=== PATIENT | female | born 1945 | race Caucasian/White ===

== ENCOUNTER 2024-02-04 13:14 | Inpatient (IN) | payer MEDICARE, OTHER, SELFPAY ==
[2024-02-04] VITALS (7 sets, daily range): BP systolic 128–147; BP diastolic 53–64; PULSE 59–92; RESP 16–26; TEMP 36.4–37; O2SAT 83–99; BMI 23.7
--- NOTE | ~2024-02-04 | CT_ITS ---
EXAMINATION: CT HEAD WITHOUT CONTRAST CLINICAL INFORMATION: Dizziness and headache. COMPARISON: None. TECHNIQUE: Contiguous axial imaging was performed from the skullbase to vertex without intravenous administration of contrast. This CT examination was performed using dose optimization techniques as appropriate, variously including the following: *Automated exposure control *Adjustment of mA and/or kV according to patient size (this includes techniques or standardized protocols for targeted exams where dose is matched to indication/reason for exam; i.e. extremities or head) *Use of iterative reconstruction technique DLP: 929 mGy-cm. FINDINGS: There is no evidence of acute intracranial hemorrhage or territorial infarction. No abnormal mass effect or midline shift is seen. Lynne to white matter differentiation is well preserved. No extra-axial fluid collections are identified. Mild chronic white matter microangiopathy changes noted. Generalized brain parenchymal volume loss evident with mild ex vacuo prominence of the ventricles. The osseous structures and soft tissues are normal. The mastoid air cells and visualized portions of the paranasal sinuses are well aerated. CT/CT head/brain wo IV con IMPRESSION: No acute intracranial hemorrhage or territorial infarction. Electronically signed by: Harshil Egan MD 02/04/2024 04:46 PM EDT
--- NOTE | ~2024-02-04 | CT_ITS ---
EXAMINATION: CT ANGIOGRAM CHEST CLINICAL INFORMATION: Syncope, hypoxia COMPARISON: None available. TECHNIQUE: Multiple axial images were obtained through the chest after the administration of 65 mL of Omnipaque 350 intravenous contrast. Extensive vascular post-processing including two-dimensional and three-dimensional reformatted images were created and reviewed on an independent workstation. This CT examination was performed using dose optimization techniques as appropriate, variously including the following: *Automated exposure control *Adjustment of mA and/or kV according to patient size (this includes techniques or standardized protocols for targeted exams where dose is matched to indication/reason for exam; i.e. extremities or head) *Use of iterative reconstruction technique DLP: 929 mGy-cm FINDINGS: QUALITY OF STUDY/CONTRAST BOLUS: Slightly suboptimal opacification. PULMONARY ARTERIES: No evidence of focal filling defect in the main, lobar, or proximal segmental vessels to suggest pulmonary embolism. THORACIC AORTA: No aneurysm. LUNG: Trachea and proximal airway are patent. Multifocal airspace and groundglass opacities in the lingula, right middle lobe, bilateral lower lobes. This could reflect infectious/inflammatory process. PLEURA: No pleural effusion or pneumothorax. MEDIASTINUM: Heart size is borderline prominent No pericardial effusion. No hilar or mediastinal lymphadenopathy. No evidence of septal bowing or right heart strain. CORONARY ARTERY CALCIFICATION: None visualized on this study. CHEST WALL/AXILLA: No axillary or internal mammary lymphadenopathy. OSSEOUS STRUCTURES: No acute or suspicious osseous abnormality. Multilevel degeneration in the thoracic spine. UPPER ABDOMEN: 1.3 cm hypodense lesion in the right hepatic lobe, likely cyst.. Right renal 3.5 cm cyst. No reflux of contrast into the hepatic veins to suggest elevated right heart pressures. CT/CT angio chest PE protocol IMPRESSION: 1. Slightly suboptimal opacification of pulmonary arteries. No evidence of filling defects to suggest pulmonary embolism.. 2. Multifocal airspace and groundglass opacities in bilateral lower lobes, lingula and right middle lobe. This could reflect infectious or inflammatory process. Recommend follow-up imaging to ensure resolution. 3. Additional findings and details above. VTE: negative Fleischner guidelines were followed. Electronically signed by: Giovanni Prasad MD 02/04/2024 05:43 PM EDT
--- NOTE | ~2024-02-04 | XR_ITS ---
EXAMINATION: XR CHEST CLINICAL INFORMATION: Hypoxia COMPARISON: None available. TECHNIQUE: Frontal view of the chest was obtained. FINDINGS: Heart size within normal limits. Curvilinear calcification is identified overlying the right heart border. Pulmonary vascularity within normal limits. Nonspecific vague bilateral increased markings and mild left midlung atelectasis. No consolidation/air bronchograms or effusions. Degenerative changes. XR/XR chest 1V IMPRESSION: Indeterminate vague increased interstitial markings and curvilinear calcification overlying the right heart border. Consider CT scan for more complete evaluation. Electronically signed by: Loree Casillas MD 02/04/2024 02:37 PM EDT
--- NOTE | 2024-02-04 13:24 | ECG_ITS ---
Test Reason : syncope Blood Pressure : / mmHG Vent. Rate : 063 BPM Atrial Rate : 063 BPM P-R Int : 156 ms QRS Dur : 122 ms QT Int : 472 ms P-R-T Axes : 056 -16 106 degrees QTc Int : 483 ms Poor data quality, interpretation may be adversely affected Sinus rhythm with Premature atrial complexes with Aberrant conduction Left bundle branch block Abnormal ECG No previous ECGs available Referred By: Calli Hernandez Electronically Signed By:KYLEE MAHMOOD
[2024-02-04 14:12] LABS: MANUAL DIFF FLAG NO
[2024-02-04 14:13] LABS: Basophils Absolute Auto 0.1 X10*3/uL (0.0-0.2); Basophils Percent Auto 0.7 % (0-2); Eosinophils Percent Auto 0.1 % (0-4); Hematocrit 37.8 % (37.0-47.0); Hemoglobin 12.7 g/dl (12.0-16.0); Imm Gran Abs Auto 0.03 X10*3/uL (0.00-0.03); Imm Gran Pct Auto 0.4 % (0.0-0.4); Lymphocytes Absolute Auto 0.7 X10*3/uL (1.2-4.9); Lymphocytes Percent Auto 9.7 % (20-40); Mean Corpuscular HGB Conc 33.6 g/dl (31.0-35.0); Mean Corpuscular Hemoglobin 32.6 pg (27.0-33.0); Mean Corpuscular Volume 96.9 fL (80.0-98.0); Mean Platelet Volume 10.1 fL (9.4-12.3); Monocytes Absolute Auto 0.3 X10*3/uL (0.1-1.2); Monocytes Percent Auto 4.1 % (2-11); Neutrophils Absolute Auto 6.4 x10*3/uL (2.0-8.3); Platelet Count 223 X10*3/uL (160-400); Red Cell Distribution Width 13.8 % (11.0-16.0); White Blood Count 7.5 X10*3/uL (4.8-10.8)
--- NOTE | 2024-02-04 14:23 | ED_ITS ---
HPI - Dizziness General Chief Complaint: Syncope Stated Complaint: VOMITING,SYNCOPE PER EMS Time Seen by Provider: 02/04/24 14:12 Source: patient and RN notes reviewed Mode of arrival: ambulatory Limitations: no limitations History of Present Illness ED Provider: Helen Ivory PA-C HPI Narrative: This is a 78-year-old female, with a history of thyroid disease, hyperlipidemia, LBBB, and vertigo, who presents emergency department accompanied by her sisters with acute onset dizziness. Patient states that this morning she leaned over, and suddenly felt a wave of dizziness. She states that the dizziness is waxing and waning however continues to be persistent. She states that she felt her symptoms improve and decided to get ready for the day and was in the car when suddenly she felt nauseous and vomited several times. Sister reports that there was a time where her breathing became very labored. Sister reports that she did not fully lose consciousness but seem to be out of it . Patient reports that before today she was feeling well. Patient reports that she currently has a headache, is nauseous and is dizzy. She states that she has a history of vertigo however states that this vertigo is different than the previous vertigo she has had in the past as usually her vertigo resolved after several seconds. She is not on blood thinners. No head strike. She has no history of lung disorders in the past. No recent travel, surgeries, hospitalizations. No history of blood clots. No other complaints or concerns at this time. MD elicited complaint: lightheadedness Timing: sudden onset Description: room spinning and near-syncope Context: change in body position History of similar symptoms: Yes Exacerbating factors: change in body position Relieving factors: nothing Associated symptoms: nausea, vomiting and diaphoresis Related Data Allergies Allergy/AdvReac Type Severity Reaction Status Date / Time azithromycin Allergy Unknown Verified 02/04/24 13:29 Sulfa (Sulfonamide Allergy Unknown Verified 02/04/24 13:29 Antibiotics) Review of Systems 2 Review of Systems: Yes all other systems are reviewed and are negative Constitutional: Constitutional: Reports as per HPI [facility] Social History Social History Smoked in Last 30 Days: No Use of substances other than those prescribed or required for medical reasons: No Advance Directives: No Advance Directives Information Provided: Yes Physical Exam 2 Vital Signs: Vital Signs: Last Vital Signs Temp 97.6 F 02/04/24 16:52 Pulse 86 02/04/24 17:36 Resp 16 02/04/24 16:52 BP 147/64 H 02/04/24 17:36 Pulse Ox 98 02/04/24 16:52 O2 Del Method Nasal Cannula 02/04/24 16:52 O2 Flow Rate 3 02/04/24 16:52 BMI result Body Mass Index 23.7 Const: General: cooperative, comfortable and no acute distress O rientation/consciousness: patient oriented x3 Limitations: no limitations HEENT: Head: Yes normal to inspection, Yes normocephalic and Yes atraumatic Ears: hearing grossly normal bilaterally General nose exam: Normal external nose present Face and sinus: Yes normal facial exam Mouth: Normal oral and palatal mucosa present, oropharynx normal and moist mucous membranes Throat: Yes posterior oropharynx normal Eyes: General: appearance normal, both eyes and all related structures E yelids: Yes eyelids normal Conjunctivae: conjunctivae normal Sclerae: s clerae normal Pupils: Equal, round and reactive pupils present EOM: EOMs intact bilaterally Neck: Neck: Yes normal visual inspection, Yes full ROM and Yes no lymphadenopathy Lymphatic: no lymphadenopathy noted Chest: Chest palpation & inspection: normal inspection of the chest Resp: Effort & Inspection: normal respiratory effort and able to speak in complete sentences Auscultation: clear to auscultation bilaterally, no crackles, no rales, no rhonchi and no wheezes Cardio: Rate: regular rate Rhythm: regular rhythm Heart sounds: S1 normal heart sound present and S2 normal heart sound present GI: Inspection: Yes normal to inspection Skin: General skin exam: no rashes or lesions noted Trauma: no lacerations or abrasions Wounds: no wounds Neuro: General: patient oriented x3 and moves all extremities Cranial nerves: Yes CN's II-XII intact bilaterally and Yes Equal, round and reactive pupils present Cognition (Neuro): normal cognition Gait exam (Neuro): N ormal gait present and not ataxic Motor exam (neuro): 5/5 motor strength present throughout, Pronator motor function not present and no tremor noted C oordination: gycyhr-ht-vbnt test normal and badr-[id number] test normal Romberg Test: Negative Extrem: General: Yes normal to inspection Right upper extremity: normal to inspection Left upper extremity: normal to inspection Right lower extremity: normal to inspection Left lower extremity: normal to inspection NIH Stroke Scale Level of Consciousness: Alert Level of Consciousness Questions: Answers both questions correctly Level of Consciousness Commands: Performs both tasks correctly Best Gaze: Normal Visual: No visual loss Facial Palsy: Normal Motor Arm (Right): No drift Motor Arm (Left): No drift Motor Leg (Right): No drift Motor Leg (Left): No drift Limb Ataxia: Absent Sensory: Normal Best Language: No aphasia Dysarthia: Normal Extinction and Inattention: No abnormality Score: 0 Course Reevaluation(s) Reevaluation #1: Patient with indeterminate vague increased interstitial markings in curvilinear calcification overlying the right heart border, consider CT for more complete evaluation. Given findings, as well as near-syncope and hypoxia, CTA was ordered to rule out PE. CT head still pending. Time: 15:00 Reevaluation #2: CT head returns, no abnormality seen. I also discussed case with my attending physician, Dr. Phan, who does not advise on antibiotics at this time. Pending 2nd troponin, CTA chest. Regardless, patient needs to be admitted for hypoxia. Workup still pending at this time, sign-out given to my colleague, Karson Crow PA-C pending re-evaluation +/- admission. Time: 16:55 Reevaluation #3: Patient received in sign-out at change of shift pending CT scan of the chest. This shows no evidence of pulmonary thromboembolism but does show multifocal pneumonia. Clinically, the patient likely aspirated earlier as she got dizzy and vomiting. This is also back to by the fact that is mostly right-sided pneumonia. We will treat with Zosyn which should cover aspiration pneumonia. The patient also has an anaphylactic allergy to azithromycin was facial and tongue swelling per her report. Will discuss with the hospitalist for admission due to aspiration pneumonia and hypoxia Time: 18:08 Medications Administered Discontinued Medications Generic Name Dose Route Start Last Admin Trade Name Freq PRN Reason Stop Dose Admin Acetaminophen 975 mg 02/04/24 17:29 02/04/24 17:40 Acetaminophen 325 Mg Tablet PO 02/04/24 17:30 975 mg ONCE ONE Administration Iohexol 65 ml 02/04/24 16:43 02/04/24 16:43 Iohexol 350 Mg/Ml 100 Ml Infus..Btl IV 02/04/24 16:44 65 ml ONCE ONE Administration Ondansetron HCl 4 mg 02/04/24 14:28 02/04/24 15:41 Ondansetron Hcl 4 Mg/2 Ml Vial IVPUSH 02/04/24 14:29 4 mg ONCE ONE Administration Medical Decision Making Medical Decision Making [facility] Narrative: This is a 78-year-old female who presents emergency department with acute onset dizziness, vomiting, and hypoxia. On arrival, patient's oxygen saturation 83%, she was placed on 4 L. now saturating at 95%. She had an episode of vomiting with shortness for breath, concerning for aspiration. She has an NIH score of 0, she has no neurologic deficits however given vertigo, vomiting, posterior/cerebellar stroke is considered, I had patient evaluated by my attending physician, Dr. Sarkar given situation, given patient has no ataxia, less suspicious for CVA. Recommending dry CT, and chest x-ray. Not advising for prophylactic antibiotics at this time. We will continue to closely monitor. Plan: Labs, EKG, chest x-ray Differential Diagnosis Differential Diagnoses: The differential diagnosis associated with the presentation includes Aspiration pneumonia, PE, electrolyte derangement, ACS, ICH Admission/Observation Consideration of admission/observation: Escalation of care including admission/observation considered Lab Data [facility] Lab Attestation statement: I reviewed the patient's lab results. 02/04/24 14:07 02/04/24 14:07 Labs: Lab Results 02/04/24 02/04/24 02/04/24 Range/Units 14:07 14:48 17:08 WBC 7.5 (4.8-10.8) X10*3/uL RBC 3.90 L (4.20-5.50) X10*6/uL Hgb 12.7 (12.0-16.0) g/dl Hct 37.8 (37.0-47.0) % MCV 96.9 (80.0-98.0) fL MCH 32.6 (27.0-33.0) pg MCHC 33.6 (31.0-35.0) g/dl RDW 13.8 (11.0-16.0) % Plt Count 223 (160-400) X10*3/uL MPV 10.1 (9.4-12.3) fL Immature Gran % (Auto) 0.4 (0.0-0.4) % Neut % (Auto) 85.0 H (45-73) % Lymph % (Auto) 9.7 L (20-40) % [place] % (Auto) 4.1 (2-11) % Eos % (Auto) 0.1 (0-4) % Baso % (Auto) 0.7 (0-2) % Lymph # (Auto) 0.7 L (1.2-4.9) X10*3/uL [place] # (Auto) 0.3 (0.1-1.2) X10*3/uL Eos # (Auto) 0.0 (0.0-0.4) X10*3/uL Baso # (Auto) 0.1 (0.0-0.2) X10*3/uL Abs Immat Gran (auto) 0.03 (0.00-0.03) X10*3/uL Absolute Neuts (auto) 6.4 (2.0-8.3) x10*3/uL Absolute Nucleated RBC 0.000 (0.0-0.012) X10*3/uL Nucleated RBC % (auto) 0.0 (0.0-0.2) /100WBC VBG pH 7.35 (7.32-7.43) VBG pCO2 53 mmHg VBG pO2 41 mmHg VBG HCO3 29 H (22-26) mmol/L VBG O2 Saturation 66.0 % VBG Base Excess 3.1 mmol/L Sodium 141 (135-145) mmol/L Potassium 4.5 (3.3-5.1) mmol/L Chloride 110 H (96-108) mmol/L Carbon Dioxide 27 (22-29) mmol/L Anion Gap 9 L (12-20) BUN 15 (9-16) mg/dL Creatinine 0.76 (0.5-1.4) mg/dL Estim Creat Clear Calc 58.0 Estimated GFR > 60 Random Glucose 119 H (60-115) mg/dL Calcium 8.7 (8.4-10.2) mg/dL Magnesium 2.1 (1.6-2.6) mg/dL Total Bilirubin 0.3 (0.0-1.0) mg/dL Direct Bilirubin 0.1 (0.0-0.5) mg/dL AST 21 (5-31) U/L ALT 13 (0-31) U/L Alkaline Phosphatase 57 (39-117) U/L Troponin I High Sens < 2.7 < 2.7 (<3.5-17.0) ng/L Total Protein 6.4 L (6.5-8.0) g/dL Albumin 3.8 (3.5-5.0) g/dL Influenza Type A (PCR) NEGATIVE (Negative) Influenza Type B (PCR) NEGATIVE (Negative) RSV RNA Qual (PCR) NEGATIVE (Negative) SARS-CoV-2 RNA (RT-PCR) NEGATIVE (Negative) Independent Interpretation I performed an independent interpretation of an: EKG Interpretation: Sinus rhythm with PAC, NV interval 156, QT QTC 472/483. Left bundle-branch block noted. No previous EKGs for comparison. Patient reports that she has a history of a left bundle-branch block Radiology Impression Discussion of test interpretation with radiology: I have reviewed the radiologist's reading. Radiologist Impression: CT/CT head/brain wo IV con IMPRESSION: No acute intracranial hemorrhage or territorial infarction. Electronically signed by: Karishma eClis MD 02/04/2024 04:46 PM EDT RP Dictated By: KARISHMA CELIS MD XR/XR chest 1V IMPRESSION: Indeterminate vague increased interstitial markings and curvilinear calcification overlying the right heart border. Consider CT scan for more complete evaluation. Electronically signed by: Loree Casillas MD 02/04/2024 02:37 PM EDT RP Dictated By: Loree Casillas MD External Record Review External record reviewed: Inpatient record, Office record, Outpatient record, Prior outpatient labs, Prior outpatient radiology, Primary care record and Outside ED record Critical Care Time Critical Care Time Critical Care Time: Yes Total Critical Care Time: 35 Attestation: I have personally provided critical care time exclusive of time spent on separately billable procedures. Time includes review of lab data, radiology results, discussion with consultants, and monitoring for potential decompensation. Intervention performed as documented. Discharge Plan Discharge Clinical Impression: Hypoxia, Aspiration pneumonia Patient Disposition: Admitted As Inpatient Print Language: Grenadian
[2024-02-04 14:32] LABS: Alanine Aminotransferase 13 U/L (0-31); Albumin Level 3.8 g/dL (3.5-5.0); Alkaline Phosphatase 57 U/L (39-117); Anion Gap 9 (12-20); Aspartate Amino Transferase 21 U/L (5-31); Bilirubin Direct 0.1 mg/dL (0.0-0.5); Bilirubin Total 0.3 mg/dL (0.0-1.0); Blood Urea Nitrogen 15 mg/dL (9-16); Calcium 8.7 mg/dL (8.4-10.2); Carbon Dioxide 27 mmol/L (22-29); Chloride 110 mmol/L (96-108); Estimated Glomerular Filt Rate > 60; Glucose Random 119 mg/dL (60-115); Magnesium 2.1 mg/dL (1.6-2.6); Potassium 4.5 mmol/L (3.3-5.1); Sodium 141 mmol/L (135-145); Total Protein 6.4 g/dL (6.5-8.0)
[2024-02-04 14:36] LABS: Troponin-I High Sensitivity < 2.7 ng/L (<3.5-17.0)
[2024-02-04 14:53] LABS: VBG Base Excess 3.1 mmol/L; VBG HCO3 29 mmol/L (22-26); VBG pCO2 53 mmHg; VBG pH 7.35 (7.32-7.43); VBG pO2 41 mmHg
[2024-02-04 14:54] LABS: Venous Blood Gas Refer to POC result
[2024-02-04] MEDS: ondansetron HCL 4 MG/2 ML VIAL IVPUSH (15:41)
[2024-02-04] MEDS: iohexoL 350 MG/ML 100 ML INFUS..BTL 65 ML IV (16:43)
--- NOTE | 2024-02-04 17:39 | PC.NURSE ---
Pt. cannot tolerate orthos at this time d/t nausea. Provider aware.
[2024-02-04] MEDS: Acetaminophen 325 MG TABLET 975 MG PO (17:40)
[2024-02-04 17:42] LABS: Troponin-I High Sensitivity < 2.7 ng/L (<3.5-17.0)
[2024-02-04 17:56] LABS: Influenza A PCR NEGATIVE (Negative); Influenza B PCR NEGATIVE (Negative); Resp Syncy Virus RNA Qual PCR NEGATIVE (Negative); SARS COV2 PCR INHOUSE NEGATIVE (Negative)
--- NOTE | 2024-02-04 18:33 | P.HPHOSP_ITS ---
History of Present Illness Date of Service: 02/04/24 Attending physician on admission: Brigida Gurrola Chief Complaint: dizzy, vomiting 78-year-old female with history of vertigo, hypothyroidism, GERD, hyperlipidemia, mood disorder presented to the ED earlier today for evaluation of vomiting and dizziness. Her son is at bedside during examination. Pt reports history of intermittent vertigo dating back 10 years brought on by position changes with room spinning sensation nausea and vomiting. Vertigo is not intractable and patient is typically asymptomatic and able to ambulate. This morning she bent forward and developed vertigo with nausea, laid down with some improvement. When she got up the dizziness recurred but went to her friends house. While driving the vertigo worsened and she had significant vomiting. Since then has had intermittent cough and her friend brought her to the hospital for evaluation. On arrival, patient was hypoxic to 83% was placed on 2 L supplemental O2. Initially tachypneic to 26 with mildly elevated hr of 92, vitals otherwise stable. On exam, supplemental O2 removed and patient has been maintaining oximetry 96% on room air. There was no leukocytosis. Renal function and electrolyte levels within normal limits except for chloride 110. Glucose 119. Troponin undetectable. Negative for COVID, flu, RSV. CT head negative for any acute intracranial abnormality. CTA chest not suggestive of pulmonary embolism but there is multifocal airspace and ground-glass opacities in the bilateral lower lobes, lingula and right middle lobe likely reflective of infectious or inflammatory process. EKG shows sinus rhythm with PACs and aberrant conduction, rate 63 with what appears to be new left bundle branch block although there are no recent EKGs available from our facility or at [facility] which was reviewed. Denies any sob, wheezing, presyncope, chest pain. In the ED, was given Tylenol and ondansetron. Review of Systems 2 Review of Systems: Yes all other systems are reviewed and are negative [facility] Medical History GERD (gastroesophageal reflux disease) Hyperlipidemia Vertigo Hypothyroidism Social History Smoked in Last 30 Days: No Use of substances other than those prescribed or required for medical reasons: No Advance Directives: No Advance Directives Information Provided: Yes Meds Allergies Allergy/AdvReac Type Severity Reaction Status Date / Time azithromycin Allergy Unknown Verified 02/04/24 13:29 Sulfa (Sulfonamide Allergy Unknown Verified 02/04/24 13:29 Antibiotics) Active Medications: Current Medications Piperacillin Sod/Tazobactam (Sod 3.375 gm/ Sodium Chloride) 50 mls @ 100 mls/hr IV ONCE ONE Stop: 02/04/24 18:36 Sodium Chloride (Ns) 1,000 mls @ 999 mls/hr IV .Q1H1M ALBINA Stop: 02/04/24 19:15 Home Medications ?Medication ?Instructions ?Recorded ?Confirmed ?Last Taken ?Type ciclopirox 0.77 % topical cream 1 appl topical DAILY 02/04/24 Unknown History famotidine 40 mg tablet 40 mg PO BID 02/04/24 Unknown History fluticasone propionate 110 1 puff inhalation DAILY 02/04/24 02/04/24 Unknown History mcg/actuation HFA aerosol inhaler levothyroxine 88 mcg tablet 88 mcg PO DAILY 02/04/24 Unknown History lorazepam 1 mg tablet 1 mg PO DAILY PRN Anxiety 02/04/24 Unknown History simvastatin 20 mg tablet 20 mg PO BEDTIME 02/04/24 Unknown History venlafaxine 75 mg capsule,extended 75 mg PO DAILY 02/04/24 Unknown History release 24 hr Physical Exam 2 Vital Signs and Narrative: Vital Signs: Last Vital Signs Temp 97.6 F 02/04/24 16:52 Pulse 86 02/04/24 17:36 Resp 16 02/04/24 16:52 BP 147/64 H 02/04/24 17:36 Pulse Ox 98 02/04/24 16:52 O2 Del Method Nasal Cannula 02/04/24 16:52 O2 Flow Rate 3 02/04/24 16:52 BMI result Body Mass Index 23.7 Constitutional - Awake and Alert, No apparent distress Eyes - PERRLA, EOMI Cardiovascular - S1S2, RRR, No edema Respiratory - Normal lung expansion, Normal respiratory effort, No respiratory distress, rhonchi R middle and lower lobe Gastrointestinal - NT / ND; +BS; No rebound or guarding Extremities - no calf tenderness bilaterally, no swelling Skin - Warm/Dry Neurological - Alert & oriented x3, horizontal nystagmus otherwise CN II-XII in tact Psychological - Appropriate affect Results Labs 02/04/24 14:07 02/04/24 14:07 Labs: Laboratory Results - last 24 hr 02/04/24 02/04/24 02/04/24 14:07 14:48 17:08 MCV 96.9 MCH 32.6 MCHC 33.6 RDW 13.8 Plt Count 223 MPV 10.1 Immature Gran % (Auto) 0.4 Neut % (Auto) 85.0 H Lymph % (Auto) 9.7 L [place] % (Auto) 4.1 Eos % (Auto) 0.1 Baso % (Auto) 0.7 Lymph # (Auto) 0.7 L [place] # (Auto) 0.3 Eos # (Auto) 0.0 Baso # (Auto) 0.1 Abs Immat Gran (auto) 0.03 Absolute Neuts (auto) 6.4 Absolute Nucleated RBC 0.000 Nucleated RBC % (auto) 0.0 VBG pH 7.35 VBG pCO2 53 VBG pO2 41 VBG HCO3 29 H VBG O2 Saturation 66.0 VBG Base Excess 3.1 Anion Gap 9 L Estim Creat Clear Calc 58.0 Estimated GFR > 60 Random Glucose 119 H Calcium 8.7 Magnesium 2.1 Total Bilirubin 0.3 Direct Bilirubin 0.1 AST 21 ALT 13 Alkaline Phosphatase 57 Troponin I High Sens < 2.7 < 2.7 Total Protein 6.4 L Albumin 3.8 Influenza Type A (PCR) NEGATIVE Influenza Type B (PCR) NEGATIVE RSV RNA Qual (PCR) NEGATIVE SARS-CoV-2 RNA (RT-PCR) NEGATIVE Imaging Radiologist's Impressions: Impressions Chest X-Ray 02/04/24 13:38 IMPRESSION: Indeterminate vague increased interstitial markings and curvilinear calcification overlying the right heart border. Consider CT scan for more complete evaluation. Electronically signed by: Loree Casillas MD 02/04/2024 02:37 PM EDT Chest CTA 02/04/24 15:00 IMPRESSION: 1. Slightly suboptimal opacification of pulmonary arteries. No evidence of filling defects to suggest pulmonary embolism.. 2. Multifocal airspace and groundglass opacities in bilateral lower lobes, lingula and right middle lobe. This could reflect infectious or inflammatory process. Recommend follow-up imaging to ensure resolution. 3. Additional findings and details above. VTE: negative Fleischner guidelines were followed. Electronically signed by: Giovanni Prasad MD 02/04/2024 05:43 PM EDT RP Head CT 02/04/24 16:00 IMPRESSION: No acute intracranial hemorrhage or territorial infarction. Electronically signed by: Harshil Egan MD 02/04/2024 04:46 PM EDT RP Assessment and Plan (1) Aspiration pneumonia: Status: Acute (2) Hypoxia: Status: Acute Plan 78-year-old female with history of vertigo, hypothyroidism, GERD, hyperlipidemia, mood disorder admitted for aspiration pneumonia with exercise hypoxemia and sepsis #Aspiration pneumonia with exercise hypoxemia and sepsis -CTA chest shows multifocal airspace disease -initially hypoxic to 83% on room air, has been weaned to room air at rest but still desaturates to 88% with exertion -no leukocytosis but has been intermittently tachypneic with heart rate in the 90s. No lactic acidosis or end-organ damage. No severe sepsis on admission. No hypotension -IV Unasyn (initiated 02/03) -no ongoing aspiration. Regular diet # vertigo-likely peripheral/BPPV -meclizine p.r.n., antiemetics p.r.n. -outpatient ENT follow-up # hypothyroidism -continue levothyroxine # GERD -famotidine # hyperlipidemia -continue statin # mood disorder -continue Ativan, venlafaxine DVT prophylaxis-Lovenox Full code Patient requires inpatient stay at least 2 midnights for management of aspiration pneumonia with sepsis and exercise hypoxemia requiring IV antibiotics and close monitoring of hemodynamics Quality Stroke Does the patient have a stroke diagnosis?: No VTE Prior VTE?: No VTE Risk Level:: Medical - moderate - high VTE Device Contraindication: Treatment Not Indicated VTE Drug Contraindication: N/A - Med Ordered
[2024-02-04 19:15] LABS: Lactic Acid 1.1 mmol/L (0.5-2.0)
[2024-02-04] MEDS: Ampicillin Sodium/Sulbactam Na 3 GM in 0.9 % Sodium Chloride 100 ML IV (19:30)
[2024-02-04] MEDS: 0.9 % Sodium Chloride 1,000 ML 999 ML IV (19:30)
--- NOTE | 2024-02-04 19:43 | PC.NURSE ---
late entry due to patient care - assumed care of pt at 1915. report received from Katerin OLVERA. fluids and antibiotics not started by previous RN . delay in obtaining blood cultures per PCT . both sets cultures now obtained and sent to lab, fluids and antibiotic started per jul (see mar for times)
[2024-02-04 19:50] LABS: Appearance Urine Clear; Color Urine Yellow; Glucose Urine UA Negative (Negative); Leukocyte Esterase Urine Negative (Negative); Nitrite Urine Negative (Negative); Specific Gravity - Urine >= 1.030 (1.005-1.025); Urine Blood Negative (Negative); Urine Ketones 15 mg/dL (Negative); Urine Protein Negative (Neg-Trace)
--- NOTE | 2024-02-04 21:18 | PC.NURSE ---
report called to Opal machado RN
--- NOTE | 2024-02-04 22:20 | PHA.MEDREC ---
Addendum entered by Rob Iyer formerly [facility] 02/04/24 22:38: MED REC CHECKED BY [facility] Original Note: Pharmacy Consult ? Medication Reconciliation Pharmacy has completed the medication reconciliation. Confirmed medications with patient and list provided by patient. Patient states she Takes her Levothyroxine 88mcg tab once daily on Saturday, Saturday, Saturday, Saturday and Saturdays and takes 1/2 tab on and no tablets on Sundays. I asked her about the Venlafaxine 75mg and she was not sure about that one but in claims shes been filling that for a 90 day supply since April 2023. She states she took her morning medications today and everything else yesterday.
[2024-02-05] MEDS: Acetaminophen 325 MG TABLET 650 MG PO ×2 (00:05→09:17)
[2024-02-05] MEDS: LORazepam 1 MG TABLET PO ×2 (00:05→20:15)
[2024-02-05] MEDS: Ampicillin Sodium/Sulbactam Na 3 GM in 0.9 % Sodium Chloride 100 ML IV ×4 (00:06→19:29)
[2024-02-05 05:47] LABS: Basophils Absolute Auto 0.1 X10*3/uL (0.0-0.2); Basophils Percent Auto 0.4 % (0-2); Eosinophils Percent Auto 0.1 % (0-4); Hematocrit 38.4 % (37.0-47.0); Hemoglobin 12.6 g/dl (12.0-16.0); Imm Gran Abs Auto 0.07 X10*3/uL (0.00-0.03); Imm Gran Pct Auto 0.4 % (0.0-0.4); Lymphocytes Absolute Auto 1.1 X10*3/uL (1.2-4.9); MANUAL DIFF FLAG NO; Mean Corpuscular HGB Conc 32.8 g/dl (31.0-35.0); Mean Corpuscular Hemoglobin 31.9 pg (27.0-33.0); Mean Corpuscular Volume 97.2 fL (80.0-98.0); Mean Platelet Volume 10.4 fL (9.4-12.3); Monocytes Absolute Auto 0.8 X10*3/uL (0.1-1.2); Monocytes Percent Auto 5.3 % (2-11); Neutrophils Absolute Auto 13.6 x10*3/uL (2.0-8.3); Neutrophils Percent Auto 86.8 % (45-73); Platelet Count 253 X10*3/uL (160-400); Red Blood Count 3.95 X10*6/uL (4.20-5.50); Red Cell Distribution Width 14.2 % (11.0-16.0); White Blood Count 15.7 X10*3/uL (4.8-10.8)
[2024-02-05 06:00] VITALS: BP 119/57; PULSE 84; RESP 16; TEMP 37.2; O2SAT 93
[2024-02-05 06:05] LABS: Anion Gap 11 (12-20); Blood Urea Nitrogen 13 mg/dL (9-16); Calcium 8.6 mg/dL (8.4-10.2); Carbon Dioxide 25 mmol/L (22-29); Chloride 110 mmol/L (96-108); Estimated Glomerular Filt Rate > 60; Glucose Random 109 mg/dL (60-115); Potassium 3.9 mmol/L (3.3-5.1); Sodium 142 mmol/L (135-145)
[2024-02-05] MEDS: Levothyroxine Sodium 88 MCG TABLET PO (06:16)
--- NOTE | 2024-02-05 07:00 | CA_ITS ---
Transthoracic Echocardiogram Patient (Last, First, Middle): Zita Sanchez, Gender: Female Date of : 1945 Age: 78 Procedure Date: 02/05/2024 Procedure Type: Transthoracic Echocardiogram Location: ER Height: 167.64 cm Weight: 66.23 kg BSA: 1.75 m2 Heart Rate: 73 bpm BP: 119 / 57 mmHg Ditch Cleaner: GILES Referring MD: Cecilia PEREZ Collection Systems Modeler: Terence Brito MD Symptoms: new lbbb Study Quality: Adequate w contrast ECG Rhythm: Sinus Conclusions: - 1. Low normal LV ejection fraction of 50-55% with mild LVH with impaired relaxation filling pattern 2. Mild aortic regurgitation 3. Normal RV systolic pressure 4. No gross pericardial effusion Findings Procedure Information Contrast agent, definity, is being given per protocol without apparent complications. Left Ventricle Normal left ventricular cavity size. There is mildly increased left ventricular wall thickness. The left ventricular systolic function is low normal. The visually estimated ejection fraction is between 50-55%. There is paradoxical septal motion consistent with a left bundle branch block. Spectral Doppler is indicative of an impaired relaxation filling pattern. E/E prime ratio is between 8 and 15 consistent with indeterminate filling pressures. Right Ventricle Normal right ventricular cavity size and systolic function. Atria Both atria are normal in size. There is no evidence of interatrial shunt. Aortic Valve Normal aortic valve structure and function. There is no aortic valve stenosis. There is mild aortic valve regurgitation. Mitral Valve Normal mitral valve structure and function. There is trace mitral valve regurgitation. There is no mitral valve stenosis. Pulmonic Valve The pulmonic valve is likely normal. Tricuspid Valve Normal tricuspid valve structure. There is trace tricuspid valve regurgitation. The right ventricular systolic pressure is normal. The right ventricular systolic pressure is 27 mmHg. Normal right atrial pressure. There is no evidence of pulmonary hypertension. Great Vessels All visible segments of the aorta are normal in size. The pulmonary artery was not well visualized. There is no dilatation of the ascending aorta measuring 2.70 cm. Venous The inferior vena cava is normal in size and collapses greater than 50% with inspiration. Pericardium/Pleural There is no evidence of pericardial effusion. Prior Study Comparison No prior study available for comparison. Measurements 2D Linear Measurements IVSd: 1.22 0.6-0.9/0.6-1.0 cm LVIDd: 3.75 3.9-5.3/4.2-5.9 cm LVIDd Index: 2.14 2.4-3.2/2.2-3.1 cm/m2 LVIDs: 2.80 2.0-3.6 cm LVPWd: 1.14 0.7-1.1 cm LA Diam: 3.20 2.7-3.8/3.0-4.0 cm LAIDs Index: 1.83 1.5-2.3 cm/m2 LV Mass: 182.38 67-162/88-224 g LV Mass Index: 104.22 43-95/49-115 g/m2 LVOT Diam: 2.00 3.0+(-)1.3 cm 2D Systolic Function EF 4C: 53.60 >55% EF 2C: 56.30 >55% EF BiP: 53.70 >55% Mitral Valve MV Pk E: 0.85 MV PK A: 1.06 MV Decel Time: 210.00 E/A: 0.80 E'Lateral: 7.51 E'Medial: 6.85 E/E' Med: 12.40 E/E' Lat: 11.30 PHT: 62.00 MVA PHT: 3.55 Decel [place]: 4.04 Aortic Valve AoV Pk Kevin: 1.76 AoV Mn Kevin: 1.21 AoV VTI: 0.35 AoV Pk Grad: 12.00 Aov Mn Grad: 7.00 CLARA Cont.VTI: 1.98 AI Pk Kevin: 2.90 AI [place]: 2.89 LVOT LVOT Pk Kevin: 0.90 LVOT Mn Kevin: 0.63 LVOT VTI: 0.22 LVOT Pk Grad: 3.00 LVOT Mn Grad: 2.00 LVOT Diam: 2.00 LVOT Area: 3.14 Diastolic Function MV Pk E: 0.85 MV Pk A: 1.06 E/A: 0.80 E'Medial: 6.85 E/E' Med: 12.40 E' Laterial: 7.51 E/E' Lat: 11.30 Right Ventricle TAPSE (mm): 25.60 TVS' Kevin: 10.80 Tricuspid Valve TR Pk Kevin: 2.46 TR Pk Grad: 24.00 RA Press: 3.00 RVSP: 27.00 Great Vessels Aorta Sinus of Valsalva: 2.80 2.0-3.5 cm Ao Asc: 2.70 2.1-3.4 cm Ao Arch: 2.60 Updated in Other Vendor System with Status of Final Terence Brito MD electronically signed on 02/05/2024 12:44:53 PM with status of Final
[2024-02-05] MEDS: Famotidine 20 MG TABLET 40 MG PO ×2 (09:06→20:10)
[2024-02-05] MEDS: Cholecalciferol (Vitamin D3) 25 MCG TABLET 50 MCG PO (09:06)
[2024-02-05] MEDS: Venlafaxine HCl ER 75 MG CAP.ER.24H PO (09:06)
[2024-02-05] MEDS: Multivitamin TABLET 1 TAB PO (09:06)
[2024-02-05] MEDS: Artificial Tears 15 ML DROPS 1 DROP EYE-BOTH (09:22)
--- NOTE | 2024-02-05 12:15 | MHC.CM.PN ---
PT LIVES WITH HAD NO SERVIES IS INDEPENDENT HAS OWN RIDE HOME DC PLAN HOME NO SERVIES
--- NOTE | 2024-02-05 13:35 | HO.PM.IMPN ---
Subjective Subjective Date of Service: 02/05/24 Interval History: Being followed for possible aspiration pneumonia/dizziness Denies shortness of breath, no dizziness complaining of cough productive of green phlegm feel nauseous tired complaining of headache, no vomiting, denies chest pain, ambulated to restroom without lightheadedness or unsteady gait, no acute events overnight. Review of Systems All other system reviewed and are negative. Physical Exam Vital Signs: Vital Signs: Last Vital Signs Temp 98.9 F 02/05/24 06:00 Pulse 84 02/05/24 06:00 Resp 16 02/05/24 06:00 BP 119/57 L 02/05/24 06:00 Pulse Ox 93 02/05/24 06:00 O2 Del Method Room Air 02/05/24 06:00 O2 Flow Rate 3 02/04/24 16:52 BMI result Body Mass Index 23.7 Const: Other: General awake alert x3, in no acute distress. Neck no JVD. CVS regular rate rhythm, Respiratory lungs clear to auscultation, no respiratory distress, no wheeze, no rhonchi. Gastrointestinal abdomen soft, non tender, bowel sounds audible. Extremities no edema. Neuro non focal Skin no rash Psych appropriate affect Objective Data Active Medications Acetaminophen (Acetaminophen 325 Mg Tablet) 650 mg PO Q6H PRN PRN Reason: Pain, Mild (Pain Scale 1-3), fever or headache Last Admin: 02/05/24 09:17 Dose: 650 mg Documented By: SYLVIA Albuterol Sulfate (Albuterol Sulfate (0.083%) 2.5 Mg/3 Ml Vial.Neb) 2.5 mg INHALE Q4H PRN PRN Reason: Shortness of Breath/Wheezing Artificial Tears (Artificial Tears 15 Ml Drops) 1 drop EYE-BOTH DAILY [facility] Last Admin: 02/05/24 09:22 Dose: 1 drop Documented By: SYLVIA Atorvastatin Calcium (Atorvastatin Calcium 10 Mg Tablet) 10 mg PO BEDTIME [facility] Calcium Carbonate (Calcium Carbonate 750 Mg Tab.Chew) 750 mg PO Q4H PRN PRN Reason: Heartburn Enoxaparin Sodium (Enoxaparin Sodium 40 Mg/0.4 Ml Syringe) 40 mg SUBCUT Q24H [facility] Last Admin: 02/04/24 20:28 Dose: Not Given Documented By: ADEN Non-Admin Reason: Patient Refused Famotidine (Famotidine 20 Mg Tablet) 40 mg PO BID [facility] Last Admin: 02/05/24 09:06 Dose: 40 mg Documented By: SYLVIA Fluticasone Propionate (Fluticasone Propionate Nasal 16 Gm [place]) 1 spray NOSTRIL-B DAILY PRN PRN Reason: Nasal Decongestion Fluticasone Propionate (Fluticasone Propionate 100 Mcg Blst.W.Dev) 1 puff INHALE DAILY PRN PRN Reason: Allergies Ampicillin Sodium/Sulbactam (Sodium 3 gm/ Sodium Chloride) 100 mls @ 200 mls/hr IV Q6H [facility] Last Infusion: 02/05/24 12:40 Dose: Infused Documented By: SYLVIA Levothyroxine Sodium (Levothyroxine Sodium 88 Mcg Tablet) 44 mcg PO Th@0630 [facility] Levothyroxine Sodium (Levothyroxine Sodium 88 Mcg Tablet) 88 mcg PO MoTuWeFrSa@0630 [facility] Last Admin: 02/05/24 06:16 Dose: 88 mcg Documented By: KHUSHBU Lorazepam (Lorazepam 1 Mg Tablet) 1 mg PO DAILY PRN PRN Reason: Anxiety Last Admin: 02/05/24 00:05 Dose: 1 mg Documented By: KHUSHBU Magnesium Hydroxide (Milk Of Magnesia 30 Ml Oral.Susp) 30 ml PO DAILY PRN PRN Reason: Constipation Meclizine HCl (Meclizine Hcl 25 Mg Tablet) 25 mg PO Q8H PRN PRN Reason: Vertigo Melatonin (Melatonin 3 Mg Tablet) 6 mg PO BEDTIME PRN PRN Reason: Insomnia Mirtazapine (Mirtazapine 15 Mg Tablet) 15 mg PO BEDTIME [facility] Multivitamins/Vitamin C (Multivitamin Tablet) 1 tab PO DAILY [facility] Last Admin: 02/05/24 09:06 Dose: 1 tab Documented By: SYLVIA Ondansetron HCl (Ondansetron Hcl 4 Mg/2 Ml Vial) 4 mg IVPUSH Q8H PRN PRN Reason: Nausea and Vomiting Sodium Chloride (0.9 % Sodium Chloride Flush 3 Ml Syringe) 3 ml IVFLUSH QSHIFT [facility] Last Admin: 02/05/24 07:23 Dose: Not Given Documented By: SYLVIA Non-Admin Reason: Previously Administered Sucralfate (Sucralfate 1 Gm Tablet) 2 gm PO DAILY PRN PRN Reason: Ulcers Venlafaxine HCl (Venlafaxine Hcl Er 75 Mg Cap.Er.24h) 75 mg PO DAILY [facility] Last Admin: 02/05/24 09:06 Dose: 75 mg Documented By: SLYVIA Vitamin D (Cholecalciferol (Vitamin D3) 25 Mcg Tablet) 50 mcg PO DAILY [facility] Last Admin: 02/05/24 09:06 Dose: 50 mcg Documented By: SYLVIA Labs 02/05/24 04:59 02/05/24 04:59 Labs: Laboratory Results - last 24 hr 02/04/24 02/04/24 02/04/24 14:07 14:48 17:08 MCV 96.9 MCH 32.6 MCHC 33.6 RDW 13.8 Plt Count 223 MPV 10.1 Immature Gran % (Auto) 0.4 Neut % (Auto) 85.0 H Lymph % (Auto) 9.7 L [place] % (Auto) 4.1 Eos % (Auto) 0.1 Baso % (Auto) 0.7 Lymph # (Auto) 0.7 L [place] # (Auto) 0.3 Eos # (Auto) 0.0 Baso # (Auto) 0.1 Abs Immat Gran (auto) 0.03 Absolute Neuts (auto) 6.4 Absolute Nucleated RBC 0.000 Nucleated RBC % (auto) 0.0 VBG pH 7.35 VBG pCO2 53 VBG pO2 41 VBG HCO3 29 H VBG O2 Saturation 66.0 VBG Base Excess 3.1 Anion Gap 9 L Estim Creat Clear Calc 58.0 Estimated GFR > 60 Random Glucose 119 H Lactic Acid Calcium 8.7 Magnesium 2.1 Total Bilirubin 0.3 Direct Bilirubin 0.1 AST 21 ALT 13 Alkaline Phosphatase 57 Troponin I High Sens < 2.7 < 2.7 Total Protein 6.4 L Albumin 3.8 Urine Color Urine Appearance Urine pH Ur Specific Kite Urine Protein Urine Glucose (UA) Urine Ketones Urine Blood Urine Nitrite Ur Leukocyte Esterase Influenza Type A (PCR) NEGATIVE Influenza Type B (PCR) NEGATIVE RSV RNA Qual (PCR) NEGATIVE SARS-CoV-2 RNA (RT-PCR) NEGATIVE 02/04/24 02/04/24 02/05/24 19:00 19:23 04:59 MCV 97.2 MCH 31.9 MCHC 32.8 RDW 14.2 Plt Count 253 MPV 10.4 Immature Gran % (Auto) 0.4 Neut % (Auto) 86.8 H Lymph % (Auto) 7.0 L Morgan % (Auto) 5.3 Eos % (Auto) 0.1 Baso % (Auto) 0.4 Lymph # (Auto) 1.1 L Morgan # (Auto) 0.8 Eos # (Auto) 0.0 Baso # (Auto) 0.1 Abs Immat Gran (auto) 0.07 H Absolute Neuts (auto) 13.6 H Absolute Nucleated RBC 0.000 Nucleated RBC % (auto) 0.0 VBG pH VBG pCO2 VBG pO2 VBG HCO3 VBG O2 Saturation VBG Base Excess Anion Gap 11 L Estim Creat Clear Calc 58.0 Estimated GFR > 60 Random Glucose 109 Lactic Acid 1.1 Calcium 8.6 Magnesium Total Bilirubin Direct Bilirubin AST ALT Alkaline Phosphatase Troponin I High Sens Total Protein Albumin Urine Color Yellow Urine Appearance Clear Urine pH 8.0 Ur Specific Kite >= 1.030 H Urine Protein Negative Urine Glucose (UA) Negative Urine Ketones 15 Urine Blood Negative Urine Nitrite Negative Ur Leukocyte Esterase Negative Influenza Type A (PCR) Influenza Type B (PCR) RSV RNA Qual (PCR) SARS-CoV-2 RNA (RT-PCR) Assessment and Plan (1) Aspiration pneumonia: Status: Acute (2) Hypoxia: Status: Acute Plan 78-year-old female with history of vertigo, hypothyroidism, GERD, hyperlipidemia, mood disorder admitted for aspiration pneumonia with hypoxemia and sepsis #Aspiration pneumonia with exercise hypoxemia and sepsis -persistent productive cough, headache and weakness -CTA chest shows multifocal airspace disease -initially hypoxic to 83% on room air, has been weaned to room air at rest but still desaturates to 88% with exertion -no leukocytosis, stable respiratory and heart rate -continue IV Unasyn (initiated 02/03) -will obtain a home O2 evaluation prior to discharge. # vertigo-likely peripheral/BPPV -dizziness resolved, continue meclizine p.r.n., antiemetics p.r.n. -outpatient ENT follow-up # hypothyroidism -continue levothyroxine # GERD -famotidine # hyperlipidemia -continue statin # mood disorder -continue Ativan, venlafaxine DVT prophylaxis-Lovenox Full code Patient requires continued inpatient stay for management of aspiration pneumonia with sepsis and exercise hypoxemia requiring IV antibiotics and close monitoring of hemodynamics. Quality Stroke Does the patient have a stroke diagnosis?: No VTE Prior VTE?: No VTE Risk Level:: Medical - moderate - high VTE Device Contraindication: Treatment Not Indicated VTE Drug Contraindication: N/A - Med Ordered
[2024-02-05 14:00] VITALS: BP 115/56; PULSE 72; RESP 16; TEMP 36.4; O2SAT 93
--- NOTE | 2024-02-05 14:21 | PC.NURSE ---
this nurse took over care of patient at 1300patient a&ox3, vss, rr equal/non labored, pt stating she has a 5/10 headache which she has taken tylenol without relief- pt stated the provider stated she can order additional medication, this nurse checked the MAR and found only tylenol ordered. Will contact Dr. Peterson and continue to monitor
[2024-02-05] MEDS: Butalb/Acetamin/Caff 50/325/40 TABLET 1 TAB PO ×2 (14:54→20:14)
[2024-02-05] MEDS: 0.9 % Sodium Chloride Flush 3 ML SYRINGE IVFLUSH ×2 (14:55→19:34)
[2024-02-05 16:42] VITALS: BP 141/66; PULSE 63; RESP 18; TEMP 36.8; O2SAT 95
[2024-02-05 18:05] VITALS: BMI 25.8
[2024-02-05 19:44] VITALS: BP 130/61; PULSE 74; RESP 20; TEMP 36.2; O2SAT 95
[2024-02-05] MEDS: Atorvastatin Calcium 10 MG TABLET PO (20:11)
[2024-02-05] MEDS: Mirtazapine 15 MG TABLET PO (20:11)
[2024-02-06] MEDS: Ampicillin Sodium/Sulbactam Na 3 GM in 0.9 % Sodium Chloride 100 ML IV ×4 (00:05→18:38)
[2024-02-06 03:17] VITALS: BP 132/63; PULSE 69; RESP 20; TEMP 36.3; O2SAT 93
[2024-02-06] MEDS: Levothyroxine Sodium 88 MCG TABLET 44 MCG PO (06:24)
[2024-02-06 07:48] VITALS: BP 130/61; PULSE 76; RESP 18; TEMP 36.3; O2SAT 93
[2024-02-06] MEDS: Venlafaxine HCl ER 75 MG CAP.ER.24H PO (08:34)
[2024-02-06] MEDS: Multivitamin TABLET 1 TAB PO (08:34)
[2024-02-06] MEDS: 0.9 % Sodium Chloride Flush 3 ML SYRINGE IVFLUSH ×3 (08:34→21:03)
[2024-02-06] MEDS: Famotidine 20 MG TABLET 40 MG PO ×2 (08:35→20:59)
[2024-02-06] MEDS: Cholecalciferol (Vitamin D3) 25 MCG TABLET 50 MCG PO (08:35)
[2024-02-06] MEDS: Artificial Tears 15 ML DROPS 1 DROP EYE-BOTH (08:39)
[2024-02-06 11:02] LABS: Hemoglobin 11.6 g/dl (12.0-16.0); Mean Corpuscular HGB Conc 33.1 g/dl (31.0-35.0); Mean Corpuscular Volume 96.4 fL (80.0-98.0); Mean Platelet Volume 10.2 fL (9.4-12.3); Platelet Count 214 X10*3/uL (160-400); Red Blood Count 3.63 X10*6/uL (4.20-5.50); Red Cell Distribution Width 14.4 % (11.0-16.0)
[2024-02-06 15:09] VITALS: BP 140/65; PULSE 69; RESP 16; TEMP 36.3; O2SAT 96
--- NOTE | 2024-02-06 16:07 | P.PNIM_ITS ---
Subjective Subjective Date of Service: 02/06/24 Interval History: Feeling better this morning, less cough, no shortness of breath, denies fever, no chills, no headache, no dizziness, no other acute issues overnight, noted to have hypoxia finger oximetry dropped down to 88 with exertion. Review of Systems All other system reviewed and are negative Physical Exam 2 Vital Signs: Vital Signs: Last Vital Signs Temp 97.3 F 02/06/24 15:09 Pulse 69 02/06/24 15:09 Resp 16 02/06/24 15:09 BP 140/65 H 02/06/24 15:09 Pulse Ox 96 02/06/24 15:09 O2 Del Method Room Air 02/06/24 15:09 O2 Flow Rate 3 02/04/24 16:52 BMI result Body Mass Index 25.8 Const: Other: General awake alert x3, in no acute distress. Neck no JVD. CVS regular rate rhythm, Respiratory lungs coarse breath sounds, no respiratory distress, no wheeze, no rhonchi. Gastrointestinal abdomen soft, non tender, bowel sounds audible. Extremities no edema. Neuro non focal Skin no rash Psych appropriate affect Objective Data Active Medications Acetaminophen (Acetaminophen 325 Mg Tablet) 650 mg PO Q6H PRN PRN Reason: Pain, Mild (Pain Scale 1-3), fever or headache Last Admin: 02/05/24 09:17 Dose: 650 mg Documented By: SYLVIA Acetaminophen/Butalbital/Caffeine (Butalb/Acetamin/Caff 50/325/40 Tablet) 1 tab PO Q4H PRN PRN Reason: headache Last Admin: 02/05/24 20:14 Dose: 1 tab Documented By: ANNA Albuterol Sulfate (Albuterol Sulfate (0.083%) 2.5 Mg/3 Ml Vial.Neb) 2.5 mg INHALE Q4H PRN PRN Reason: Shortness of Breath/Wheezing Artificial Tears (Artificial Tears 15 Ml Drops) 1 drop EYE-BOTH DAILY [facility] Last Admin: 02/06/24 08:39 Dose: 1 drop Documented By: KARELY Atorvastatin Calcium (Atorvastatin Calcium 10 Mg Tablet) 10 mg PO BEDTIME [facility] Last Admin: 02/05/24 20:11 Dose: 10 mg Documented By: ANNA Calcium Carbonate (Calcium Carbonate 750 Mg Tab.Chew) 750 mg PO Q4H PRN PRN Reason: Heartburn Enoxaparin Sodium (Enoxaparin Sodium 40 Mg/0.4 Ml Syringe) 40 mg SUBCUT Q24H [facility] Last Admin: 02/05/24 19:35 Dose: Not Given Documented By: ANNA Non-Admin Reason: Patient Refused Famotidine (Famotidine 20 Mg Tablet) 40 mg PO BID [facility] Last Admin: 02/06/24 08:35 Dose: 40 mg Documented By: KARELY Fluticasone Propionate (Fluticasone Propionate Nasal 16 Gm [place]) 1 spray NOSTRIL-B DAILY PRN PRN Reason: Nasal Decongestion Fluticasone Propionate (Fluticasone Propionate 100 Mcg Blst.W.Dev) 1 puff INHALE DAILY [facility] Last Admin: 02/06/24 11:31 Dose: Not Given Documented By: CHLOE Non-Admin Reason: Med Not Available Ampicillin Sodium/Sulbactam (Sodium 3 gm/ Sodium Chloride) 100 mls @ 200 mls/hr IV Q6H [facility] Last Admin: 02/06/24 14:23 Dose: 200 mls/hr Documented By: KARELY Levothyroxine Sodium (Levothyroxine Sodium 88 Mcg Tablet) 44 mcg PO Th@0630 [facility] Last Admin: 02/06/24 06:24 Dose: 44 mcg Documented By: ANNA Levothyroxine Sodium (Levothyroxine Sodium 88 Mcg Tablet) 88 mcg PO MoTuWeFrSa@0630 [facility] Last Admin: 02/05/24 06:16 Dose: 88 mcg Documented By: KHUSHBU Lorazepam (Lorazepam 1 Mg Tablet) 1 mg PO DAILY PRN PRN Reason: Anxiety Last Admin: 02/05/24 20:15 Dose: 1 mg Documented By: ANNA Magnesium Hydroxide (Milk Of Magnesia 30 Ml Oral.Susp) 30 ml PO DAILY PRN PRN Reason: Constipation Meclizine HCl (Meclizine Hcl 25 Mg Tablet) 25 mg PO Q8H PRN PRN Reason: Vertigo Melatonin (Melatonin 3 Mg Tablet) 6 mg PO BEDTIME PRN PRN Reason: Insomnia Mirtazapine (Mirtazapine 15 Mg Tablet) 15 mg PO BEDTIME [facility] Last Admin: 02/05/24 20:11 Dose: 15 mg Documented By: ANNA Multivitamins/Vitamin C (Multivitamin Tablet) 1 tab PO DAILY [facility] Last Admin: 02/06/24 08:34 Dose: 1 tab Documented By: KARELY Ondansetron HCl (Ondansetron Hcl 4 Mg/2 Ml Vial) 4 mg IVPUSH Q8H PRN PRN Reason: Nausea and Vomiting Sodium Chloride (0.9 % Sodium Chloride Flush 3 Ml Syringe) 3 ml IVFLUSH QSHIFT [facility] Last Admin: 02/06/24 08:34 Dose: 3 ml Documented By: KARELY Sucralfate (Sucralfate 1 Gm Tablet) 2 gm PO DAILY PRN PRN Reason: Ulcers Venlafaxine HCl (Venlafaxine Hcl Er 75 Mg Cap.Er.24h) 75 mg PO DAILY [facility] Last Admin: 02/06/24 08:34 Dose: 75 mg Documented By: KARELY Vitamin D (Cholecalciferol (Vitamin D3) 25 Mcg Tablet) 50 mcg PO DAILY [facility] Last Admin: 02/06/24 08:35 Dose: 50 mcg Documented By: KARELY Labs 02/06/24 10:34 02/05/24 04:59 Labs: Laboratory Results - last 24 hr 02/06/24 10:34 MCV 96.4 MCH 32.0 MCHC 33.1 RDW 14.4 Plt Count 214 MPV 10.2 Absolute Nucleated RBC 0.000 Nucleated RBC % (auto) 0.0 Microbiology Microbiology Results: Microbiology 02/04/24 19:23 Blood Culture - Preliminary Blood - Venous No growth after 24 hours. 02/04/24 19:00 Blood Culture - Preliminary Blood - Venous No growth after 24 hours. Assessment and Plan (1) Aspiration pneumonia: Status: Acute (2) Hypoxia: Status: Acute Plan 78-year-old female with history of vertigo, hypothyroidism, GERD, hyperlipidemia, mood disorder admitted for aspiration pneumonia with hypoxemia and sepsis #Aspiration pneumonia with exercise hypoxemia and sepsis -feeling better, no shortness of breath mild cough ,no headache or weakness -CTA chest shows multifocal airspace disease, will need outpatient repeat imaging study for clearance -initially hypoxic to 83% on room air, has been weaned to room air at rest but still desaturates to 88% with exertion -no leukocytosis, stable heart and resp.rate -will add DuoNeb updraft qid ,continue Flovent with history of mild persistent asthma -continue IV Unasyn (initiated 02/03) -add incentive spirometry , -home O2 eval with persistent hypoxia # vertigo-likely peripheral/BPPV -dizziness resolved, continue meclizine p.r.n. # hypothyroidism -continue levothyroxine # GERD -famotidine # hyperlipidemia -continue statin # mood disorder -continue Ativan, venlafaxine DVT prophylaxis-Lovenox Full code Patient requires continued inpatient stay for management of aspiration pneumonia with sepsis and exercise hypoxemia requiring IV antibiotics and close monitoring of hemodynamics. Quality Stroke Does the patient have a stroke diagnosis?: No VTE Prior VTE?: No VTE Risk Level:: Medical - moderate - high VTE Device Contraindication: Treatment Not Indicated VTE Drug Contraindication: N/A - Med Ordered
[2024-02-06] MEDS: Albuterol/Iprat 2.5/0.5MG 3 ML AMPUL.NEB INHALE ×2 (17:34→20:01)
[2024-02-06 17:39] VITALS: PULSE 88; RESP 18; O2SAT 96
[2024-02-06] MEDS: Enoxaparin Sodium 40 MG/0.4 ML SYRINGE SUBCUT (18:38)
[2024-02-06 19:17] VITALS: BP 134/62; PULSE 82; RESP 16; TEMP 36.1; O2SAT 97
[2024-02-06 20:02] VITALS: PULSE 83; RESP 16; O2SAT 94
[2024-02-06] MEDS: Atorvastatin Calcium 10 MG TABLET PO (20:59)
[2024-02-06] MEDS: Mirtazapine 15 MG TABLET PO (20:59)
[2024-02-06] MEDS: Docusate Sodium 100 MG CAPSULE 200 MG PO (21:17)
[2024-02-06] MEDS: guaiFENesin 200 MG/10 ML 10 ML LIQUID PO (23:30)
[2024-02-07] MEDS: Ampicillin Sodium/Sulbactam Na 3 GM in 0.9 % Sodium Chloride 100 ML IV ×2 (01:54→06:12)
[2024-02-07 03:32] VITALS: BP 134/65; PULSE 71; RESP 18; TEMP 36.6; O2SAT 96
[2024-02-07] MEDS: Levothyroxine Sodium 88 MCG TABLET PO (06:09)
[2024-02-07 08:00] VITALS: BP 119/56; PULSE 79; RESP 18; TEMP 36.5; O2SAT 93
[2024-02-07] MEDS: guaiFENesin 200 MG/10 ML 10 ML LIQUID PO (08:51)
[2024-02-07] MEDS: Multivitamin TABLET 1 TAB PO (08:52)
[2024-02-07] MEDS: Artificial Tears 15 ML DROPS 1 DROP EYE-BOTH (08:52)
[2024-02-07] MEDS: Venlafaxine HCl ER 75 MG CAP.ER.24H PO (08:52)
[2024-02-07] MEDS: Cholecalciferol (Vitamin D3) 25 MCG TABLET 50 MCG PO (08:52)
[2024-02-07] MEDS: Famotidine 20 MG TABLET 40 MG PO (08:52)
[2024-02-07] MEDS: 0.9 % Sodium Chloride Flush 3 ML SYRINGE IVFLUSH (08:54)
[2024-02-07] MEDS: Albuterol/Iprat 2.5/0.5MG 3 ML AMPUL.NEB INHALE (11:25)
[2024-02-07 11:26] VITALS: PULSE 79; RESP 18; O2SAT 94
[2024-02-07 12:34] VITALS: PULSE 78; PULSE 84; O2SAT 93; O2SAT 94
--- NOTE | 2024-02-07 12:51 | PM.DS ---
DS: Providers Provider Date of Service: 02/07/24 Date of admission: 02/04/24 18:58 Primary care physician: Chula Higginbotham DO DS: Diagnosis Discharge Diagnosis (1) Aspiration pneumonia: Status: Acute (2) Hypoxia: Status: Acute DS: Summary Hospital Course Hospital Course: History of presenting illness: Date of Service: 02/04/24 Attending physician on admission: Brigida Gurrola Chief Complaint: dizzy, vomiting 78-year-old female with history of vertigo, hypothyroidism, GERD, hyperlipidemia, mood disorder presented to the ED earlier today for evaluation of vomiting and dizziness. Her son is at bedside during examination. Pt reports history of intermittent vertigo dating back 10 years brought on by position changes with room spinning sensation nausea and vomiting. Vertigo is not intractable and patient is typically asymptomatic and able to ambulate. This morning she bent forward and developed vertigo with nausea, laid down with some improvement. When she got up the dizziness recurred but went to her friends house. While driving the vertigo worsened and she had significant vomiting. Since then has had intermittent cough and her friend brought her to the hospital for evaluation. On arrival, patient was hypoxic to 83% was placed on 2 L supplemental O2. Initially tachypneic to 26 with mildly elevated hr of 92, vitals otherwise stable. On exam, supplemental O2 removed and patient has been maintaining oximetry 96% on room air. There was no leukocytosis. Renal function and electrolyte levels within normal limits except for chloride 110. Glucose 119. Troponin undetectable. Negative for COVID, flu, RSV. CT head negative for any acute intracranial abnormality. CTA chest not suggestive of pulmonary embolism but there is multifocal airspace and ground-glass opacities in the bilateral lower lobes, lingula and right middle lobe likely reflective of infectious or inflammatory process. EKG shows sinus rhythm with PACs and aberrant conduction, rate 63 with what appears to be new left bundle branch block although there are no recent EKGs available from our facility or at [facility] which was reviewed. Denies any sob, wheezing, presyncope, chest pain. In the ED, was given Tylenol and ondansetron. Hospital course: 78-year-old female with history of vertigo, hypothyroidism, GERD, hyperlipidemia, mood disorder admitted for aspiration pneumonia with hypoxemia and sepsis #Aspiration pneumonia with exercise hypoxemia and sepsis, with underlying mild persistent asthma, treated with IV Unasyn, updraft treatment, cough medication and was continued on Flovent, oxygenation improved, home O2 eval done, patient does not qualify for home O2 , being discharged on Augmentin for 2 more days to finish a total 5 day course of antibiotic, recommend to take cough syrup as needed, and use albuterol MDI 2 puffs as needed for shortness of breath, she is recommended to continue Flovent inhaler. # vertigo-likely peripheral/BPPV, had no recurrent episodes of dizziness recommend to continue meclizine as needed and outpatient vestibular rehab for recurrent symptoms # hypothyroidism -continue levothyroxine home dose # GERD continue famotidine # hyperlipidemia -continue statin # mood disorder no acute decompensation noted continue Ativan, and venlafaxine. Time Attestation Discharge Coordination Time (in mins): 36 Quality: Safe Use of Opioids Does Pt have an Active Cancer Diagnosis on the Problem List?: No Quality: Stroke Does the patient have a stroke diagnosis?: No Physical Exam Vital Signs: Vital Signs: Last Vital Signs Temp 97.7 F 02/07/24 08:00 Pulse 79 02/07/24 11:26 Resp 18 02/07/24 11:26 BP 119/56 L 02/07/24 08:00 Pulse Ox 93 02/07/24 08:00 O2 Del Method Room Air 02/07/24 08:00 O2 Flow Rate 3 02/04/24 16:52 BMI result Body Mass Index 25.8 Const: Other: General awake alert x3, in no acute distress. Neck no JVD. CVS regular rate rhythm, Respiratory lungs coarse breath sounds at b/l bases, no respiratory distress, no wheeze, no rhonchi. Gastrointestinal abdomen soft, non tender, bowel sounds audible. Extremities no edema. Neuro non focal Skin no rash Psych appropriate affect DS: Data Data Completed and Pending Labs on day of discharge: Preliminary micro results at discharge 02/04/24 19:23 Blood Culture - Preliminary Blood - Venous No growth after 48 hours. 02/04/24 19:00 Blood Culture - Preliminary Blood - Venous No growth after 48 hours. Discharge Plan Discharge Anticipated Discharge Date/Time: 02/07/24 12:34 Patient Disposition: Home, Self-Care Discharge Diagnosis: Aspiration pneumonia Referrals: Chula Higginbotham DO [Primary Care Provider] - 1 Week Discharge Medications: New albuterol sulfate [Ventolin HFA] 90 mcg/actuation Hfa Aerosol Inhaler 2 puff inhalation RQ4H PRN (Reason: sob) Qty: 8.5 0RF amoxicillin-pot clavulanate 875-125 mg Tablet 1 tab PO Q12H Qty: 5 0RF guaifenesin 100 mg/5 mL Liquid 200 mg PO Q6H PRN (Reason: Cough) Qty: 473 0RF Continued venlafaxine 75 mg capsule,extended release 24hr 75 mg PO DAILY famotidine 40 mg tablet 40 mg PO BID levothyroxine 88 mcg tablet 88 mcg PO MOTUWEFRSA simvastatin 20 mg tablet 20 mg PO BEDTIME lorazepam 1 mg tablet 1 mg PO DAILY PRN (Reason: Anxiety) fluticasone propionate 110 mcg/actuation HFA aerosol inhaler 1 puff inhalation DAILY PRN (Reason: Allergies) sucralfate [Carafate] 1 gram Tablet 2 g PO DAILY PRN (Reason: Ulcers) levothyroxine 88 mcg tablet 44 mcg PO TH fluticasone propionate 50 mcg/actuation [place],Suspension 1 spray INTRANASAL DAILY PRN (Reason: Nasal Decongestion) Rx Instructions: administer into each nostril vitamin B complex Capsule 1 cap PO DAILY Dry Eye Relief 1-0.2-0.2 % Drops 1 drp OPHTHALMIC (EYE) DAILY mirtazapine 7.5 mg Tablet 15 mg PO DAILY cholecalciferol (vitamin D3) 100 mcg (4,000 unit) Capsule 50 mcg PO DAILY Discharge Orders: Discharge Order (Routine); Ordered 02/07/24 Ordered By: Bel Peterson Diet: Advance to usual diet Activity on Discharge: As tolerated Stand Alone Forms: Patient Portal Discharge page Print Language: Korean Care Plan Goals: Take Augmentin starting this evening for total 5 tablets 1 tablet twice daily Use cough medication 4 times a day as needed for cough Use albuterol inhaler 2 puffs as needed for shortness of breath every 4 hours Health Concerns: Vertigo resolved Continue home medications for hypothyroidism GERD and hyperlipidemia Plan of Treatment: Follow-up with primary care physician call for appointment Assessment: as above
[2024-02-07] MEDS: Amoxicillin/Potassium Clav 875 MG TABLET PO (12:52)
--- NOTE | 2024-02-07 12:55 | MHC.CM.PN ---
Pt is medically cleared for discharge home self-care, pt has arranged her own transport home.
== END 2024-02-07 13:55 | disposition home or self-care (01) | DRG 871 ==
LOC: HO.ED 18:09 → HO.EDOVER 19:26 → HO.S3 02-05 15:43
PROVIDERS: Physician Assistant; Physician Assistant Medical; Admitting Provider Physician Assistant; Emergency Provider Emergency Medicine; PCP Family Medicine; Visit Provider Hospitalist
DX: A41.9 Sepsis, unspecified organism (principal); J69.0 Pneumonitis due to inhalation of food and vomit; N39.0 Urinary tract infection, site not specified; E03.9 Hypothyroidism, unspecified; R09.02 Hypoxemia; H81.10 Benign paroxysmal vertigo, unspecified ear; K21.9 Gastro-esophageal reflux disease without esophagitis; E78.5 Hyperlipidemia, unspecified; Z20.822 Contact with and (suspected) exposure to COVID-19; Z79.890 Hormone replacement therapy; Z79.899 Other long term (current) drug therapy
CPT/HCPCS: 0241U; 36415; 70450; 71045; 71275; 80048; 80076; 81003; 82803; 83605; 83735; 84484; 85025; 85027; 87040; 93005; 93306; 99285; J0295; J1650; J2405; Q9957; Q9967

== ENCOUNTER 2024-02-04 18:58 | Outpatient (BNV) | payer MEDICARE, OTHER, SELFPAY | END 2024-02-05 07:00 | PROVIDERS: Admitting Provider Physician Assistant; Emergency Provider Emergency Medicine; PCP Family Medicine; Visit Provider Internal Medicine Cardiovascular Disease | DX: I35.1 Nonrheumatic aortic (valve) insufficiency (principal); I44.7 Left bundle-branch block, unspecified | CPT/HCPCS: 93306 ==

== ENCOUNTER → 2024-02-04 18:58 | Outpatient (BNV) | payer MEDICARE, OTHER, SELFPAY | PROVIDERS: Admitting Provider Physician Assistant; Emergency Provider Emergency Medicine; PCP Family Medicine; Visit Provider Physician Assistant | DX: J69.0 Pneumonitis due to inhalation of food and vomit (principal); R09.02 Hypoxemia | CPT/HCPCS: 99223; 99232; 99233; 99239 ==